=== PATIENT | female | born 1995 | race Caucasian/White ===

== ENCOUNTER → 2016-11-12 09:17 | Outpatient (CLI) | payer MEDICAID ==
[2015-02-09 09:48] VITALS: BMI 25.8
[~2016-11-12 09:17] MED LIST: FERROUS SULFAT325 MG; IBUPROFEN600 MG PO; PERCOCET 5-3251 TAB PO; PRENATAL COMPLE1 TAB PO
== END | disposition home or self-care (01) ==
LOC: D.US 08:30
DX: N63 Unspecified lump in breast (principal)

== ENCOUNTER → 2017-05-14 18:21 | Outpatient (CLI) | payer MEDICAID ==
[2015-02-09 09:48] VITALS: BMI 25.8
[2017-05-14 19:28] LABS: T4 THYROXIN - FREE 1.2 ng/dL (0.76-1.46); THYROID STIMULATING HORMONE 0.98 uIU/mL (0.36-3.74)
== END | disposition home or self-care (01) ==
LOC: D.LABREF 18:21
PROVIDERS: Internal Medicine Cardiovascular Disease
DX: R00.0 Tachycardia, unspecified (principal)

== ENCOUNTER → 2017-06-09 09:42 | Outpatient (CLI) | payer MEDICAID ==
[2015-02-09 09:48] VITALS: BMI 25.8
== END | disposition home or self-care (01) ==
LOC: D.US 09:42
DX: I70.213 Atherosclerosis of native arteries of extremities with intermittent claudication, bilateral legs (principal); M79.605 Pain in left leg; M79.604 Pain in right leg

== ENCOUNTER → 2019-07-23 09:30 | Outpatient (CLI) | payer MEDICAID ==
[2015-02-09 09:48] VITALS: BMI 25.8
== END | disposition home or self-care (01) ==
LOC: D.US 09:30
PROVIDERS: ATTEND Nurse Practitioner
DX: N64.4 Mastodynia (principal)